=== PATIENT | male | born 1975 | race Caucasian/White ===

== ENCOUNTER 2024-09-23 09:23 | Emergency (ER) | payer BC, OTHER ==
[~2024-09-23] VITALS: Ht 180.3 cm; Wt 86.2 kg
[2024-09-23 09:29] VITALS: BP 141/75; TEMP 98.3
[2024-09-23 09:40] VITALS: O2SAT 97
== END 2024-09-23 09:41 | disposition home or self-care (01) ==
LOC: ER 09:28
DX: M95.12 Cauliflower ear, left ear (principal); H92.02 Otalgia, left ear